=== PATIENT | female | born 1955 | race African-American/Black ===

== ENCOUNTER 2024-05-31 10:19 | Inpatient (IN) | payer OTHER, MEDICARE ==
[~2024-05-31] VITALS: Ht 165.1 cm; Wt 67.1 kg
[~2024-05-31 10:19] MED LIST: ALBU18HF2 IH; CHOL400D7 MT; CYAN50007 MT; FLUT1BLS INH; HYDR12.54 MT; METF-1150 MT; P20 MT; SIMV5TAB58 MT
[2024-05-31 10:44] VITALS: RESP 23
[2024-05-31] MEDS: ALBUTEROL (0.083%) 2.5MG/3ML NEB HHN STA (10:44)
[2024-05-31] MEDS: IPRATROPIUM BROMIDE (0.02%) 0.5MG/2.5ML NEB HHN STA (10:44)
[2024-05-31 11:06] LABS: HEMATOCRIT. 44.9 % (36.0-48.0); HEMOGLOBIN. 13.9 g/dL (12.0-16.0); MEAN CORPUSCULAR HEMOGLOBIN 28.5 pg (28.0-32.0); MEAN PLATELET VOLUME 9.8 fl (7.4-10.4); PLATELET 239 x1000/uL (130-400); RED BLOOD CELL COUNT 4.88 mill/uL (4.2-5.4); RED CELL DISTRIBUTION WIDTH 14.9 % (11.6-14.6); WHITE BLOOD COUNT 14.4 x1000/uL (4.5-11.0)
[2024-05-31] MEDS: METHYLPREDNISOLONE SOD SUCC 125MG/2ML (ACT-O-VIAL) IV STA (11:10)
[2024-05-31] MEDS: MAGNESIUM 2 G PREMIX 50 ML IV ONE (11:11)
[2024-05-31] MEDS: CEFTRIAXONE 1GM/50ML 50 ML IV ONE (11:11)
[2024-05-31 11:14] LABS: CHLORIDE 98 mEq/L (98-107); POTASSIUM 4.3 mEq/L (3.5-5.1); SODIUM 142 mEq/L (136-145)
[2024-05-31 11:15] LABS: CARBON DIOXIDE 38 mEq/L (21-32)
[2024-05-31 11:16] LABS: CALCIUM 9.7 mg/dL (8.7-10.4)
[2024-05-31 11:20] LABS: CREATININE 0.9 mg/dL (0.6-1.0); GLUCOSE 149 mg/dL (70-105); UREA NITROGEN BLOOD 22 mg/dL (9-23)
[2024-05-31 11:24] LABS: INR 0.9; PROTHROMBIN TIME 10.4 sec (9.6-11.0)
[2024-05-31 11:30] LABS: DIFFERENTIAL COMMENT 1
[2024-05-31 11:33] LABS: ETHANOL BLOOD < 10 mg/dL (<10); TROPONIN I HIGH SENSITIVITY 40 ng/L (3.0-34)
[2024-05-31] MEDS: AZITHROMYCIN 500MG/250ML 250 ML IV SCH (11:40)
[2024-05-31 12:54] LABS: BG CARBOXYHEMOGLOBIN 0.9 % (0.5-1.5); BG DEOXYHEMOGLOBIN 2.5 % (0.0-5.0); BG FRACTION INSPIRED OXYGEN 40; BG HCO3 ACT 37.9 mmol/L (21.0-28.0); BG METHEMOGLOBIN 0.3 % (0.5-1.5); BG OXYGEN SATURATION 97.5 % (94.0-98.0); BG OXYHEMOGLOBIN 96.3 % (94.0-98.0); BG PCO2 73.8 mmHg (32.0-45.0); BG PH 7.328 (7.350-7.450); BG PO2 107.6 mmHg (83.0-108.0); BG SAMPLE SITE RIGHT RADIAL; BG TOTAL HEMOGLOBIN 13.5 g/dL (12.0-16.0); BG VENT MODE MASK - BIPAP
[2024-05-31 14:47] LABS: TROPONIN I HIGH SENSITIVITY 33 ng/L (3.0-34)
[2024-05-31 15:56] VITALS: RESP 39
[2024-05-31 16:14] LABS: PLATELET ESTIMATE NORMAL
[2024-05-31 16:34] LABS: TROPONIN I HIGH SENSITIVITY 33 ng/L (3.0-34)
[2024-05-31 21:20] VITALS: RESP 24
[2024-05-31] MEDS: HYDRALAZINE 20MG/ML VIAL IV PRN (21:56)
[2024-06-01] VITALS (8 sets, daily range): BP systolic 120–144; BP diastolic 63–82; PULSE 86–113; RESP 14–25; TEMP 36.3–36.7; O2SAT 94–99
[2024-06-01] MEDS: IPRATROPIUM/ALBUTEROL 0.5-3(2.5)MG/3ML NEB HHN SCH (06:00)
[2024-06-01 07:02] LABS: THYROID STIMULATING HORMONE < 0.10 uIU/mL (0.55-4.78)
[2024-06-01 07:13] LABS: BG BASE EXCESS 11.7 mmol/L (-2.0-3.0); BG DEOXYHEMOGLOBIN 2.7 % (0.0-5.0); BG FRACTION INSPIRED OXYGEN 35; BG HCO3 ACT 39.4 mmol/L (21.0-28.0); BG METHEMOGLOBIN 0.3 % (0.5-1.5); BG OXYGEN SATURATION 97.3 % (94.0-98.0); BG PCO2 66.6 mmHg (32.0-45.0); BG PO2 99.3 mmHg (83.0-108.0); BG SAMPLE SITE RIGHT RADIAL; BG TOTAL HEMOGLOBIN 13.1 g/dL (12.0-16.0); BG TOTAL RESPIRATORY RATE 23 b/min; BG VENT MODE MASK - BIPAP
[2024-06-01] MEDS: PANTOPRAZOLE SODIUM 40 MG/VIAL IV SCH (09:11)
[2024-06-01 16:20] LABS: CLARITY URINE CLEAR (CLEAR); COLOR URINE YELLOW (YELLOW); GLUCOSE URINE 2+ (NEGATIVE); KETONES URINE NEGATIVE (NEGATIVE); LEUKOCYTE ESTERASE URINE NEGATIVE (NEGATIVE); NITRITE URINE NEGATIVE (NEGATIVE); OCCULT BLOOD URINE NEGATIVE (NEGATIVE); PROTEIN URINE 1+ (NEGATIVE); SPECIFIC GRAVITY URINE 1.043 (1.005-1.030)
[2024-06-01 16:38] LABS: *AMPHETAMINES SCREEN URINE NEGATIVE (NEGATIVE); *BARBITURATES SCREEN URINE NEGATIVE (NEGATIVE); *BENZODIAZEPINES SCREEN URINE NEGATIVE (NEGATIVE); *COCAINE SCREEN URINE NEGATIVE (NEGATIVE); METHADONE URINE SCREEN NEGATIVE (NEGATIVE)
[2024-06-01 16:39] LABS: CANNABINOID URINE SCREEN NEGATIVE (NEGATIVE); ECSTASY MDMA SCREEN URINE NEGATIVE (NEGATIVE); OPIATES URINE SCREEN NEGATIVE (NEGATIVE); PHENCYCLIDINE URINE SCREEN NEGATIVE (NEGATIVE)
[2024-06-01 16:53] LABS: BACTERIA URINE NONE SEEN; RBC URINE NONE SEEN /hpf (0-2); SQUAMOUS EPITHELIAL CELL URINE RARE /lpf (RARE/1+); WBC URINE NONE SEEN /hpf (0-2)
[2024-06-01] MEDS: PREDNISONE 20MG TABLET PO SCH (18:18)
[2024-06-01] MEDS: BUDESONIDE 0.5MG/2ML NEB HHN SCH (22:00)
[2024-06-02] VITALS (10 sets, daily range): BP systolic 131–149; BP diastolic 63–85; PULSE 65–113; RESP 18–20; TEMP 36.1–37; O2SAT 95–99
[2024-06-03] VITALS (7 sets, daily range): BP systolic 134–183; BP diastolic 80–97; PULSE 82–117; RESP 18–20; TEMP 36.2–36.6; O2SAT 90–98
[2024-06-03] MEDS ORDERED: P20 MT (09:58)
== END 2024-06-03 15:10 | disposition home or self-care (01) | DRG 189 ==
LOC: ER 10:19 → MICUSO 13:20 → EDBEDREQ 13:41 → EDBEDREQTM 13:41 → EDBEDREQSVC 06-01 09:13 → 5WST 06-01 11:55
PROVIDERS: ADMIT Internal Medicine; ATTEND Internal Medicine
DX: J96.22 Acute and chronic respiratory failure with hypercapnia (principal); J44.1 Chronic obstructive pulmonary disease with (acute) exacerbation; D72.829 Elevated white blood cell count, unspecified; I11.0 Hypertensive heart disease with heart failure; R79.89 Other specified abnormal findings of blood chemistry; Z20.822 Contact with and (suspected) exposure to COVID-19; E78.00 Pure hypercholesterolemia, unspecified; E11.9 Type 2 diabetes mellitus without complications; I50.9 Heart failure, unspecified; Z87.891 Personal history of nicotine dependence; Z86.16 Personal history of COVID-19; Z90.710 Acquired absence of both cervix and uterus; Z79.84 Long term (current) use of oral hypoglycemic drugs; Z79.899 Other long term (current) drug therapy
CPT/HCPCS: 36415; 36600; 71045; 80048; 80305; 80320; 81003; 82375; 82805; 83605; 83735; 83880; 84100; 84145; 84443; 84484; 85025; 87426; 87804; 93005; 93970; 94070; 94640; 94660; 99291; J0360; J0456; J0696; J2470; J2919; J3475; J7512; J7626; G0480